=== PATIENT | female | born 1990 | race Caucasian/White ===

== ENCOUNTER 2016-11-12 22:58 | Emergency (ER) | payer BC ==
[2016-11-12] MEDS ORDERED: TUMERIC (23:28)
[2016-11-12] MEDS ORDERED: VITAMIN B-12250 MC2 PO (23:28)
[2016-11-12] MEDS ORDERED: PROBIOTIC1 EA10 PO (23:29)
[2016-11-13 00:27] LABS: BASO % 0.5 % (0-2); BASO ABSOLUTE COUNT 0.1 tho/cmm (0.0-0.2); EOS % 1.9 % (0-7); EOSINOPHIL ABSOLUTE COUNT 0.2 tho/cmm (0.0-0.7); HCT-HEMATOCRIT 38.1 % (34.0-49.0); HGB-HEMOGLOBIN 13.1 gm/dl (12.0-15.5); IMMATURE GRANULOCYTES ABSOLUTE 0.02 tho/cmm (0-0.03); IMMATURE GRANULOCYTES PERCENT 0.2 % (0-0.3); LYMPH % 20.5 % (20-45); MCH (MEAN CORPUSCULAR HGB) 29.6 pg (28.0-32.0); MCHC MEAN CORPUSCULAR HGB CONC 34.4 % (32.0-36.0); MCV (MEAN CELL VOLUME) 86.2 fl (82.0-96.0); MONOCYTE ABSOLUTE COUNT 0.7 tho/cmm (0.0-1.2); NEUTROPHIL ABSOLUTE COUNT 6.8 tho/cmm (1.6-8.0); NEUTROPHIL-AUTOMATED 6.8 tho/cmm (1.6-8.0); NEUTROPHILS % 69.9 % (40-80); PLATELET COUNT 291 tho/cmm (150-450); RED BLOOD COUNT 4.42 mil/cmm (4.00-5.20); WHITE BLOOD COUNT 9.7 tho/cmm (4.0-10.0)
[2016-11-13 00:30] LABS: URINE BILIRUBIN NEGATIVE (NEG); URINE BLOOD NEGATIVE (NEG); URINE GLUCOSE (UA) NEGATIVE (NEG); URINE KETONE NEGATIVE (NEG); URINE LEUKOCYTE ESTERASE NEGATIVE (NEG); URINE NITRITE NEGATIVE (NEG); URINE PROTEIN NEGATIVE (NEG)
[2016-11-13 00:31] LABS: URINE COLOR YELLOW
[2016-11-13 00:32] LABS: URINE APPEARANCE SL CLOUDY
== END 2016-11-13 02:01 ==
LOC: EDMED 22:58
PROVIDERS: Emergency Medicine
DX: N83.201 Unspecified ovarian cyst, right side (principal); F17.200 Nicotine dependence, unspecified, uncomplicated
CPT/HCPCS: J1170; J2405